=== PATIENT | male | born 1965 ===

== ENCOUNTER 2020-07-17 13:14 | Inpatient (IN) | payer OTHER ==
[~2020-07-17] VITALS: Ht 177.8 cm; Wt 86.2 kg
[2020-07-26] MEDS ORDERED: ESOMEPRAZOLE MA40 MG (08:12)
[2020-07-28] MEDS ORDERED: PERCOCET 5-3251 EACH PO (13:55)
[2020-07-28] MEDS ORDERED: PRILOSEC OTC20 MG PO (13:55)
[2020-08-14] MEDS ORDERED: FUSION PLUS CA1 EACH PO (14:42)
== END 2020-07-28 16:46 | disposition home or self-care (01) | DRG 331 ==
LOC: SURH → O/R 07-25 07:49 → SURH 07-25 07:49
PROVIDERS: ADMIT Surgery; ATTEND Surgery
PROC: 0DTF4ZZ Resection of Right Large Intestine, Percutaneous Endoscopic Approach (ICD-10-PCS; principal; 2020-07-25 07:00)
DX: C18.7 Malignant neoplasm of sigmoid colon (principal); E61.1 Iron deficiency; Z53.1 Procedure and treatment not carried out because of patient's decision for reasons of belief and group pressure; K63.89 Other specified diseases of intestine

== ENCOUNTER → 2020-07-17 13:24 | Outpatient (CLI) | payer OTHER ==
[~2020-07-17 13:24] MED LIST: ESOMEPRAZOLE MA40 MG; PERCOCET 5-3251 EACH PO; PRILOSEC OTC20 MG PO
== END | disposition home or self-care (01) ==
LOC: LAB 13:24
PROVIDERS: ATTEND Internal Medicine Hematology & Oncology
DX: D50.8 Other iron deficiency anemias (principal); C18.2 Malignant neoplasm of ascending colon

== ENCOUNTER 2020-07-23 07:17 | Day surgery (SDC) | payer OTHER | END 2020-07-23 13:00 | disposition home or self-care (01) | LOC: AMB-ENDOS 07:17 → ADM 09:45 → AMB-ENDOS 13:00 | PROVIDERS: ATTEND Surgery | DX: C18.7 Malignant neoplasm of sigmoid colon (principal); D12.4 Benign neoplasm of descending colon; Z20.828 Contact with and (suspected) exposure to other viral communicable diseases; K64.8 Other hemorrhoids ==

== ENCOUNTER 2020-08-19 05:45 | Day surgery (SDC) | payer OTHER ==
[~2020-08-19 05:45] MED LIST changes: +FUSION PLUS CA1 EACH PO
[2020-08-19] MEDS ORDERED: ULTRACET PO (08:59)
== END 2020-08-19 14:30 | disposition home or self-care (01) ==
LOC: CIR.AMB 05:45
PROVIDERS: ATTEND Surgery
DX: C18.2 Malignant neoplasm of ascending colon (principal); Z20.828 Contact with and (suspected) exposure to other viral communicable diseases
CPT/HCPCS: 36561; C1751